=== PATIENT | female | born 1980 | race African-American/Black ===

== ENCOUNTER 2022-11-02 08:40 | Emergency (ER) | payer OTHER, SELFPAY ==
--- NOTE | 2022-11-02 08:51 | ED.EAR ---
HPI - Ear Problem General Chief complaint: Ear Stated complaint: ear pain Time Seen by Provider: 11/02/22 08:52 Source: patient and RN notes reviewed Mode of arrival: ambulatory Limitations: no limitations History of Present Illness HPI Narrative: 41-year-old female presents concern for right ear pain, sinus congestion. She reports chronic sinusitis, sinus pressure and drainage. She reports over the last week she has had right ear pain and sinus pain and pressure under her right eye. Reports she has been taking prednisone that was given to her by her primary doctor that is not helping her symptoms. MD Complaint: ear pain Related Data Allergies Allergy/AdvReac Type Severity Reaction Status Date / Time No Known Allergies Allergy Verified 11/02/22 09:00 Review of Systems Review of Systems: CONSTITUTIONAL: Denies malaise, chills, sweats, or fever. EYES: Denies visual changes, redness, or discharge. ENT: Reports rhinorrhea, congestion, sinus pain, and sore throat. Reports right ear pain CARDIOVASCULAR: Denies chest pain, palpitations, or edema. RESPIRATORY: Denies cough. Denies dyspnea. GASTROINTESTINAL: Denies abdominal pain, nausea, vomiting, diarrhea SKIN: Denies rash or itching. MUSCULOSKELETAL: Denies myalgia. NEUROLOGIC: Denies headache. All systems reviewed & are unremarkable except as noted in HPI and below PMFSH Comments At time of signature, agree with nursing past medical, surgical, social and family history. There is no relevant family history pertinent to the presenting complaint Exam Narrative: GENERAL: Well-appearing, well-nourished, and in no acute distress. HEAD: Normocephalic EYES: PERRLA, conjunctivae clear ENT: Nares clear, turbinates edematous, clear discharge. Mucous membranes moist. TM pearly segura with dull light reflex bilaterally; no tragal tenderness. Oropharynx not erythematous without lesions. Tonsils not enlarged and without exudate, no drooling, no hoarseness, no trismus, uvula midline. NECK: Supple. No lymphadenopathy CHEST: Clear to auscultation, breath sounds equal. No wheezing, rhonchi, rales, or stridor. No respiratory distress, speaks in full sentences. HEART: Regular rate and rhythm. No murmur heard. SKIN: Warm, dry, no rash. NEURO: Alert and oriented x3. PSYCH: Normal mood and affect Course Course Emergency Course: Patient is aware of diagnosis, understands and agrees to treatment plan. Anticipatory guidance given. Patient agrees to follow-up as directed and is aware of reasons to seek care at the emergency department. Portions of this record may have been created with voice recognition software Level of Care: Express Care Visit Vital Signs Vital signs: Reviewed. Medical Decision Making MDM Narrative Medical decision making narrative: Differential diagnosis considered: Dominique virus, strep pharyngitis, allergic rhinitis, upper respiratory tract infection, sinusitis, rhinosinusitis, nasopharyngitis. viral pharyngitis, otitis media, otitis externa, otitis effusion, cerumen impaction, foreign body. Exam findings show no acute concerns or changes; patient is non-toxic appearing and is in no distress. Patient is appropriate for outpatient treatment and follow-up. Critical Care Time Critical Care Time Critical Care Time: No Discharge Plan Discharge Clinical Impression: Acute bacterial sinusitis Patient Disposition: Home, Self-Care Condition: Stable Instructions: Antibiotic Form, Sinusitis (ED) Additional Instructions: Take medication as directed Nonprescription pain medications, such as acetaminophen (eg, Tylenol) or ibuprofen (eg, Motrin, Advil), are recommended for pain. Flushing the nose and sinuses with a saline solution several times per day has been proven to decrease pain associated with congestion and shorten the duration of symptoms. Nasal steroids (such as Flonase, 2 sprays in each nostril daily) can help to reduce swelling inside the nose, usually withi
[2022-11-02 08:53] VITALS: BP 113/74; PULSE 85; RESP 16; TEMP 37; O2SAT 99
== END 2022-11-02 09:06 | disposition home or self-care (01) ==
PROVIDERS: Emergency Provider Nurse Practitioner; PCP Internal Medicine
DX: J01.90 Acute sinusitis, unspecified (principal)
CPT/HCPCS: 99203; G0463

== ENCOUNTER 2022-11-22 09:50 | Emergency (ER) | payer OTHER, SELFPAY ==
--- NOTE | ~2022-11-22 | XR_ITS ---
EXAMINATION: XR lumbar spine 2-3V DATE: 11/22/2022 10:25 INDICATION: Low back pain. TECHNIQUE: 3 views of lumbar spine were obtained. COMPARISON: None. FINDINGS: There is 4 degrees levocurvature of lumbar spine. Vertebral body heights and intervertebral disc heights are normal. There are endplate osteophytes at multiple levels. The facet joints are unr emarkable. IMPRESSION: 1. Mild lumbar spondylosis. Reviewed, dictated and finalized at location A. [facility] [employer] [facility] IMPRESSION: 1. Mild lumbar spondylosis.
--- NOTE | 2022-11-22 09:52 | ED.EXTPRO ---
HPI - Extremity Problem General Chief complaint: Extremity Problem,Nontraumatic Stated complaint: tingling in lower legs, feet and fingertips Time Seen by Provider: 11/22/22 09:51 Source: patient Mode of arrival: ambulatory Limitations: no limitations History of Present Illness HPI Narrative: Steff is a 41-year-old female patient presenting to the clinic today with complaints of tingling in her lower legs, feet, and finger tips x5 days. She reports she went to the [facility] ER on for the symptoms. Reports that they did some blood work on her and told her her vitamin-D level was low and now she is taking vitamin D 70519 units weekly. States she is still having tingling in her extremities. She reports that she developed some low back pain yesterday. She denies any history of diabetes or anemia. She denies any injury to her back or neck. She denies any neck pain. She denies any history of any autoimmune disease. Related Data Home Medications Medication Instructions Recorded Confirmed ergocalciferol (vitamin D2) 1,250 1,250 mcg WEEKLY 11/22/22 11/22/22 mcg (50,000 unit) capsule Allergies Allergy/AdvReac Type Severity Reaction Status Date / Time No Known Allergies Allergy Verified 11/22/22 10:02 Review of Systems Review of Systems: Pertinent positives per HPI. Patient denies any fever, chills, rash, headache, visual changes, dizziness, cough, runny nose, sore throat, shortness of breath, chest pain, palpitations, nausea, vomiting, diarrhea, constipation, abdominal pain, or any urinary issues. PMFSH Comments At the time of my signature, I reviewed and agree with the nursing past medical, surgical, social, and family history. There is no relevant family history pertinent to the patient complaint. Exam Narrative: General: Well-developed, well nourished, in no apparent distress Head: Normocephalic, atraumatic. Cardio: Regular rate and rhythm, s1 and s2 normal, no murmur appreciated. Resp: Clear to auscultation bilaterally, no rhonchi, rales, wheezing or rubs. Musculoskeletal: No deformity, mild tender to palpation over the lumbar spine, nontender to palpation over the cervical spine, grossly normal range of motion, muscle strength strong and equal, hand staff genetic counselor strong and equal bilaterally,upper and lower extremity peripheral pulse strong, cap refill less than 2 seconds to upper and lower extremities, all extremities pink, warm, and dry- appropriate for race, no edema, no cyanosis, normal gait and station Course Course Emergency Course: Portions of this record may have been created with voice recognition software. Level of Care: Express Care Visit Vital Signs Vital signs: Vital Signs Temperature 36.6 C 11/22/22 09:57 Pulse Rate 85 11/22/22 09:57 Respiratory Rate 20 11/22/22 09:57 Blood Pressure 106/79 11/22/22 09:57 Pulse Oximetry 100 11/22/22 09:57 Oxygen Delivery Room Air 11/22/22 09:57 Temperature 36.6 C 11/22/22 09:57 Pulse Rate 85 11/22/22 09:57 Respiratory Rate 20 11/22/22 09:57 Blood Pressure 106/79 11/22/22 09:57 Pulse Oximetry 100 11/22/22 09:57 Oxygen Delivery Room Air 11/22/22 09:57 Vital signs reviewed MDM - Extremity (Nontraumatic) MDM Narrative Medical decision making narrative: At the time of the patient is resting comfortably on the exam table. Urinalysis is negative in the clinic for any sign of infection, blood, or protein. Blood sugar was 96 in the clinic today . Lab Data Labs: Lab Results 11/22/22 Range/Units 10:08 POC Capillary Glucose 96 (65-105) mg/dl Urine Glucose Negative Reference Range: Negative Urine Bilirubin Negative Reference Range: Negative Urine Ketone Negative Reference Range: Negative Urine
[2022-11-22 09:57] VITALS: BP 106/79; PULSE 85; RESP 20; TEMP 36.6; O2SAT 100
[2022-11-22 10:11] LABS: Glucose Point of Care 96 mg/dl (65-105)
== END 2022-11-22 10:35 | disposition home or self-care (01) ==
PROVIDERS: Emergency Provider Nurse Practitioner Family; PCP Internal Medicine
DX: R20.2 Paresthesia of skin (principal); M54.50 Low back pain, unspecified; M47.816 Spondylosis without myelopathy or radiculopathy, lumbar region
CPT/HCPCS: 72100; 81003; 82948; 99213; G0463

== ENCOUNTER 2023-02-06 14:24 | Emergency (ER) | payer OTHER, SELFPAY ==
[2023-02-06 14:35] VITALS: BP 131/88; PULSE 98; RESP 16; TEMP 36.9; O2SAT 100
--- NOTE | 2023-02-06 14:38 | ED.URI ---
HPI - URI/Sore Throat General Chief Complaint: Upper Respiratory Infection Stated Complaint: Sore Throat/ Ear Irritation Time Seen by Provider: 02/06/23 14:38 Source: patient Mode of arrival: ambulatory Limitations: no limitations History of Present Illness HPI Narrative: Patient is a 42-year-old female that presents with right ear pain and sore throat that started this morning. Denies any congestion, cough, fever, headache. Has not taken anything for pain. Related Data Home Medications Medication Instructions Recorded Confirmed ergocalciferol (vitamin D2) 1,250 1,250 mcg WEEKLY 11/22/22 02/06/23 mcg (50,000 unit) capsule Allergies Allergy/AdvReac Type Severity Reaction Status Date / Time No Known Allergies Allergy Verified 02/06/23 14:47 Review of Systems Review of Systems: All systems reviewed & are unremarkable except as noted in HPI and below Constitutional: Constitutional: Denies body ache(s), Denies fever(s), Denies malaise and Denies weakness Eyes: Eyes: Denies loss of vision ENT: Reports otalgia (right), Reports headache(s), Denies nasal congestion, Denies sinus pain and Reports sore throat Cardiovascular: Cardiovascular: Denies chest pain, Denies irregular heart rhythm and Denies dyspnea Respiratory: Respiratory: Denies cough and Denies dyspnea Gastrointestinal: Gastrointestinal: Denies abdominal pain, Denies melena, Denies hematochezia, Denies diarrhea, Denies nausea and Denies vomiting Musculoskeletal: Musculoskeletal: Denies back pain, Denies myalgias and Denies arthralgias Integumentary/Breasts: Skin/Breast: Denies pruritus and Denies rash Neurologic: Denies headache(s), Denies loss of vision and Denies weakness Psychiatric: Psychiatric: Reports no additional psychiatric complaints PMFSH Comments At time of signature, agree with nursing past medical, surgical, social and family history. There is no relevant family history pertinent to the presenting complaint. Exam Const: General: cooperative, healthy appearing, comfortable, no acute distress and well nourished Nutritional Appearance: well nourished Orientation/consciousness: patient oriented x3 Limitations: no limitations HENMT: Head: normal to inspection, normocephalic and atraumatic Ears: external ears normal, TM normal on the left and TM abnormal bulging on the right and erythematous on the right Face/Nose/Sinus: Normal external nose present, normal facial exam, sinuses nontender and face symmetric Face and sinus: normal facial exam, sinuses nontender and face symmetric Mouth: Yes Normal oral and palatal mucosa present, Yes lip normal and Yes moist mucous membranes Teeth and gingiva: dentition normal Throat: posterior oropharynx normal, tonsils normal and uvula midline Eyes: General: appearance normal, both eyes and all related structures Alignment and Position: alignment normal and position normal Periorbital: periorbital findings normal Eyelids: eyelids normal Pupils: Equal, round and reactive pupils present Neck: Neck: normal visual inspection, full ROM and supple Chest: Chest palpation & inspection: normal inspection of the chest and normal palpation of entire chest wall Resp: Effort & Inspection: normal respiratory effort and able to speak in complete sentences Auscultation: clear to auscultation bilaterally, no crackles, no rales, no rhonchi and no wheezes Cardio: Rate: regular rate Rhythm: regular rhythm Heart sounds: S1 normal heart sound present and S2 normal heart sound present GI: Inspection: normal to inspection Skin: General skin exam: normal color and no rashes or lesions noted Neuro: General: patient oriented x3 and moves all extremities Cranial nerves: Yes Equal, round and reactive pupils present Speech: normal speech Gait exam (Neuro): Normal gait present Extrem: General: normal to inspection, full ROM and no edema Psych: Appearance: grossly normal and well kempt Mental Status: mental status gross
== END 2023-02-06 14:53 | disposition home or self-care (01) ==
PROVIDERS: Emergency Provider Nurse Practitioner Family; PCP Internal Medicine
DX: H66.91 Otitis media, unspecified, right ear (principal)
CPT/HCPCS: 99213; G0463

== ENCOUNTER 2023-07-22 03:55 | Emergency (ER) | payer BC, MEDICAID, SELFPAY ==
[2023-07-22 03:59] VITALS: BP 114/80; PULSE 82; RESP 14; TEMP 36.6; O2SAT 100
--- NOTE | 2023-07-22 04:30 | ED.GENADULT ---
HPI - General Adult General Chief complaint: Abdominal Pain Stated complaint: abd pain Time Seen by Provider: 07/22/23 04:11 History of Present Illness HPI narrative: This is a 42-year-old female presenting ED with chief complaint of abdominal pain. The patient says that she has been having epigastric abdominal pain. She says this got worse for the last several days. It is a burning burning pain in the epigastric area that radiates to her back. 10/10 intensity. She has had this pain intermittently for years. It is worse when she eats food. Her primary care physician has recently prescribed her sucralfate. She denies fever chills, nausea vomiting diarrhea, chest pain or difficulty breathing. She has a GI physician who performed an EGD 1 year ago. She has not been able to get in to see her GI. Related Data Home Medications Medication Instructions Recorded Confirmed ergocalciferol (vitamin D2) 1,250 1,250 mcg WEEKLY 11/22/22 02/06/23 mcg (50,000 unit) capsule Allergies Allergy/AdvReac Type Severity Reaction Status Date / Time No Known Allergies Allergy Verified 07/22/23 04:57 [facility] Past Medical History Medical History Gastritis Exam Narrative: APPEARANCE: No apparent distress. Head: atraumatic. EYES: EOMI, NOSE: Atraumatic NECK: Trachea midline RESPIRATORY: No increased rate of breathing CARDIOVASCULAR: RRR, ABDOMINAL: Tenderness palpation the epigastric area without guarding or rebound. Point of care right upper quadrant ultrasound showed a normal gallbladder with gallstones. No gallbladder wall thickening or pericholecystic fluid. Negative sonographic Skaggs's. MUSCULOSKELETAl: No obvious deformities NEURO: Alert. Moving 4/4 extremities SKIN:: Warm, dry. Normal color PSYCHIATRIC: Normal affect Course Vital Signs Vital signs: Vital Signs Temperature 97.9 F 07/22/23 03:59 Pulse Rate 82 07/22/23 03:59 Respiratory Rate 14 07/22/23 03:59 Blood Pressure 114/80 07/22/23 03:59 Pulse Oximetry 100 07/22/23 03:59 Oxygen Delivery Room Air 07/22/23 03:59 Temperature 97.9 F 07/22/23 03:59 Pulse Rate 73 07/22/23 06:52 Respiratory Rate 19 07/22/23 06:52 Blood Pressure 105/63 07/22/23 06:52 Pulse Oximetry 100 07/22/23 06:52 Oxygen Delivery Room Air 07/22/23 03:59 Medical Decision Making [facility] Narrative Medical decision making narrative: -Course: 42-year-old female presenting with epigastric pain. History and physical consistent with gastritis/ peptic ulcer disease. Laboratory studies reassuring. Patient was treated with improvement in her symptoms. She is on sucralfate but we will add Protonix. Additionally she will be given a short course of oxycodone. Patient discharged with return precautions. -DDX includes but is not limited to: Gastritis, peptic ulcer disease, pancreatitis, gallbladder disease, GERD -Co-morbidities complicating care: chronic abdominal pain -Social determinants of health: works in [employer] lives with her boyfriend and daughter -Independent interpretation of studies: laboratory studies within normal limits. -Interventions: 1 L normal saline, 0.5 mg Dilaudid, 30 mL Maalox, 20 mg Pepcid, 4 mg Zofran x2 -Shared decision making / Disposition:Discharged -RX Protonix 40 mg once daily, Tylenol 1000 mg t.i.d., oxycodone 5 mg. Zofran 4mg odt Vital Signs Vital Signs: Vital Signs Temperature 97.9 F 07/22/23 03:59 Pulse Rate 82 07/22/23 03:59 Respiratory Rate 14 07/22/23 03:59 Blood Pressure 114/80 07/22/23 03:59 Pulse Oximetry 100 07/22/23 03:59 Oxygen Delivery Room Air 07/22/23 03:59 Temperature 97.9 F 07/22/23 03:59 Pulse Rate 73 07/22/23 06:52 Respiratory Rate 19 07/22/23 06:52 Blood Pressure 105/63 07/22/23 06:52 Pulse Oximetry 100 07/22/23 06:52 Oxygen Delivery Room Air 07/22/23 03:59 Lab Data 07/22/23 04:45
[2023-07-22] MEDS: SODIUM CHLORIDE 0.9% IV 1,000 ML 999 ML IV CONT (04:48)
[2023-07-22] MEDS: ONDANSETRON INJ 4 MG/2 ML VIAL IV PUSH ×2 (04:50→06:46)
[2023-07-22] MEDS: FAMOTIDINE 20 MG/2 ML VIAL IV PUSH (04:50)
[2023-07-22] MEDS: MAG HYDROX/AL HYDROX/SIMETH 30 ML UDC PO (04:51)
[2023-07-22] MEDS: HYDROmorphone HCL INJ (*CRX) 1 MG/ML SYR 0.5 MG IV PUSH (04:51)
[2023-07-22 04:57] LABS: Basophils Percent Auto 0.6 % (0.2-1.2); Eosinophils Absolute Auto 0.1 K/mm3 (0-0.3); Hematocrit 40.2 % (37.0-47.0); Hemoglobin 13.4 g/dL (12.0-15.0); Immature Granulocyte Absolute 0.01 K/mm3 (0.00-0.031); Immature Granulocyte Percent A 0.2 % (0-0.5); Lymphocytes Absolute Auto 2.08 K/mm3 (0.9-3.2); Lymphocytes Percent Auto 43.3 % (18.3-44.2); Mean Corpuscular HGB Conc 33.3 g/dl (32-36); Mean Corpuscular Hemoglobin 29.5 pg (26-34); Mean Corpuscular Volume 88.4 fl (80-100); Mean Platelet Volume 10.6 fl (7.4-10.4); Monocytes Absolute Auto 0.5 K/mm3 (0.1-0.6); Monocytes Percent Auto 10.6 % (2.6-8.5); Neutrophils Absolute Auto 2.1 K/mm3 (1.3-6.7); Neutrophils Percent Auto 44.3 % (45.5-73.1); Platelet Count Result 220 k/mm3 (150-375); Red Blood Count 4.55 M/mm3 (4.2-5.4); Red Cell Distribution Width 12.1 % (11.5-14.5); White Blood Count 4.8 K/mm3 (4.5-10.0)
[2023-07-22 04:58] VITALS: BP 114/82; PULSE 67; RESP 20; O2SAT 100
[2023-07-22 04:58] LABS: Appearance Urine Clear (Clear); Bilirubin Urine Negative (Negative); Blood Urine Negative (Negative); Color Urine Yellow (Yellow); Glucose Urine UA Negative (Negative); Ketones Urine Negative (Negative); Leukocyte Esterase Ur Negative LEU/UL (Negative); Nitrate Urine Negative (Negative); Protein Urine Negative (Negative); Specific Grav Ur 1.024 (1.001-1.035)
[2023-07-22 05:06] LABS: Alanine Aminotransferase 16 U/L (6-35); Alkaline Phosphatase 58 U/L (38-126); Anion Gap 7 mmol/L (8-16); Aspartate Amino Transferase 25 U/L (14-36); Bilirubin,Total 0.3 mg/dL (0.2-1.3); Blood Urea Nitrogen 11 mg/dL (7-17); Carbon Dioxide 29 mmol/L (22-30); Chloride 102 mmol/L (98-107); Estimated CRCL calculation 91 ml/min; Estimated Glomerular Filt Rate > 60; Glucose 101 mg/dL (65-110); Lipase 86 U/L (23-300); Potassium 3.8 mmol/L (3.4-5.0); Sodium 138 mmol/L (137-145)
[2023-07-22 05:07] LABS: Add Urine Microscopic? NO
[2023-07-22 05:45] VITALS: BP 109/76; PULSE 64; RESP 14; O2SAT 100
[2023-07-22 06:26] VITALS: BP 106/74; PULSE 65; RESP 16; O2SAT 100
[2023-07-22 06:52] VITALS: BP 105/63; PULSE 73; RESP 19; O2SAT 100
== END 2023-07-22 06:54 | disposition home or self-care (01) ==
PROVIDERS: Emergency Provider Emergency Medicine; PCP Internal Medicine
DX: K29.70 Gastritis, unspecified, without bleeding (principal)
CPT/HCPCS: 36415; 80053; 81003; 83690; 85025; 96361; 96374; 96375; 96376; 99284; A9270; J1170; J2405; J7030